=== PATIENT | male | born 1990 | race Two or more races ===

== ENCOUNTER 2016-10-18 12:37 | Emergency (ER) | payer OTHER ==
[2016-10-18 12:46] VITALS: BP 106/64; PULSE 66; TEMP 97; BMI 23.0
--- NOTE | 2016-10-18 12:58 | PDOC ---
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 States felt a pop /crack and has difficulty bearing weight. Occurred: reports: just prior to arrival Severity: reports: mild, moderate Pain Location: reports: lower extremity (right ankle ) Method of Injury: Yes: fall Modifying Factors: worse with: None Associated Symptoms (Fall): denies symptoms Past History - Travel Traveled outside of the country in the last 30 days: No Close contact w/someone who was outside of country & ill: No - Past Medical History Allergies/Adverse Reactions: Allergies Allergy/AdvReac Type Severity Reaction Status Date / Time No Known Allergies Allergy Verified 10/18/16 12:46 Home Medications: Ambulatory Orders NK [No Known Home Medication] 10/18/16 Thyroid Disease: No - Psycho/Social/Smoking Cessation Hx Anxiety: No Suicidal Ideation: No Smoking History: Never smoked Have you smoked in the past 12 months: No Information on smoking cessation initiated: No Hx Alcohol Use: No Drug/Substance Use Hx: No Substance Use Type: None Review of Systems - Review of Systems Able to Perform ROS?: Yes Is the patient limited Croatian proficient: Yes Constitutional: Yes: Symptoms Reported, See HPI HEENTM: No: Symptoms Reported Respiratory: No: Symptoms reported Musculoskeletal: Yes: Symptoms Reported, See HPI, Joint Pain, Joint Swelling ( mild right ankle pain ) Integumentary: Yes: Symptoms Reported, See HPI, Bruising All Other Systems: Reviewed and Negative *Physical Exam - Vital Signs Last Vital Signs Temp Pulse Resp BP Pulse Ox 97.0 F L 66 16 106/64 100 10/18/16 12:43 10/18/16 12:43 10/18/16 12:43 10/18/16 12:43 10/18/16 12:43 - Physical Exam General Appearance: Yes: Nourished, Appropriately Dressed, Apparent Distress, Mild Distress HEENT: positive: SUMIT, Normal ENT Inspection, TMs Normal, Pharynx Normal Neck: negative: Tender Respiratory/Chest: positive: Lungs Clear Musculoskeletal: positive: Normal Inspection Extremity: positive: Normal Capillary Refill, Normal Inspection. negative: Normal Range of Motion (limited range of motion secondary to 2 swelling with flexion and dorsiflexion of right foot. Has no true point tenderness to medial or lateral malleolus, no tenderness to navicular or fifth metatarsal, negative squeeze test. Neurovascular intact to foot.) Integumentary: positive: Normal Color, Dry, Warm Neurologic: positive: python architect II-XII NML intact, Fully Oriented, Alert, Normal Mood/ Affect, Normal Response, Motor Strength 5/5 Procedures - Splinting Splint Location: Right: Ankle Pre-Made Type: aircast Post-Proc Neuro Vasc Exam: normal, unchanged from pre-exam Renan Bandage: 4" Progress Note - Progress Note Progress Note: Right ankle sprain, Renan, Aircast and crutches provided Medical Decision Making - Medical Decision Making 10/18/16 13:00 10/18/16 14:42 X-ray negative for fractures or dislocation, will discharge with Renan, Aircast and crutches *DC/Admit/Observation/Transfer Diagnosis at time of Disposition: Sprain of right ankle Qualifiers: Encounter type: initial encounter Involved ligament of ankle: unspecified ligament Qualified Code(s): S93.401A - Sprain of unspecified ligament of right ankle, initial encounter - Discharge Dispostion Disposition: HOME Condition at time of disposition: Stable Admit: No - Referrals Referrals: Miguel Conner MD [Staff Physician] - - Patient Instructions Printed Discharge Instructions: DI for Ankle Sprain Additional Instructions: Rest, ice to area on and off for 15 minutes 4-6 times a day Avoid heavy lifting or exercise until pain and swelling is resolved or until further directed Keep area highly elevated to reduce swelling Use splints/Renan wrap as directed Followup with orthopedist in one to 2 days if not improving, if significantly improved may wait one week for followup with orthopedist May use ibuprofen 2-200 mg tablets every 6 hours as needed for pain - Post Discharge Activity Work/School Note: Back to Work
--- NOTE | 2016-10-18 13:29 | PDOC ---
*Physical Exam - Vital Signs Last Vital Signs Temp Pulse Resp BP Pulse Ox 97.0 F L 66 16 106/64 100 10/18/16 12:43 10/18/16 12:43 10/18/16 12:43 10/18/16 12:43 10/18/16 12:43 Medical Decision Making - Medical Decision Making 10/18/16 13:29 Pt seen by the Advanced Practice Provider under my direct supervision Ancillary studies reviewed I agree with plan as outlined by the Advanced Practice Provider SIRENA Martinez *DC/Admit/Observation/Transfer Diagnosis at time of Disposition: Right ankle sprain - Discharge Dispostion Disposition: HOME Condition at time of disposition: Stable - Referrals Referrals: Miguel Conner MD [Staff Physician] - - Patient Instructions Printed Discharge Instructions: DI for Ankle Sprain Additional Instructions: Rest, ice to area on and off for 15 minutes 4-6 times a day Avoid heavy lifting or exercise until pain and swelling is resolved or until further directed Keep area highly elevated to reduce swelling Use splints/Renan wrap as directed Followup with orthopedist in one to 2 days if not improving, if significantly improved may wait one week for followup with orthopedist May use ibuprofen 2-200 mg tablets every 6 hours as needed for pain - Post Discharge Activity Work/School Note: Back to Work
== END 2016-10-18 14:59 | disposition home or self-care (01) ==
LOC: JER 12:37
PROC: 2W3LX1Z Immobilization of Right Lower Extremity using Splint (ICD-10-PCS; principal; 2016-10-18)
DX: S93.401A Sprain of unspecified ligament of right ankle, initial encounter (principal); W18.39XA Other fall on same level, initial encounter; Y93.01 Activity, walking, marching and hiking; Y92.414 Local residential or business street as the place of occurrence of the external cause
CPT/HCPCS: 73610-TC-RT; 73630-TC-RT; 99283-25